=== PATIENT | male | born 1970 | race Caucasian/White ===

== ENCOUNTER 2018-07-26 09:05 | Outpatient (CLI) | payer BC | END 2018-07-26 09:06 | disposition home or self-care (01) | LOC: CTENTCT 09:05 | PROVIDERS: ATTEND Otolaryngology Plastic Surgery within the Head & Neck | DX: J01.81 Other acute recurrent sinusitis (principal) | CPT/HCPCS: 70486 ==

== ENCOUNTER 2019-07-10 08:36 | Emergency (ER) | payer BC ==
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
--- NOTE | 2019-07-10 09:30 | RAD ---
LEFT ANKLE 3 VIEWS: HISTORY: Injury, pain. COMPARISON: 06/12/2004. FINDINGS: Mild arthrosis changes of the ankle joint. The previously noted internal fixation screw transversing the distal tibia and fibula has been removed when compared to the prior study. Anterior and lateral soft tissue swelling. No acute fracture or dislocation. IMPRESSION: Swelling of the ankle and anterior aspect of the hindfoot region. Mild arthrosis of the ankle joint. No acute fracture or dislocation. POS: OFF
== END 2019-07-10 09:50 | disposition home or self-care (01) ==
LOC: ERS 08:36
DX: S93.602A Unspecified sprain of left foot, initial encounter (principal); V09.9XXA Pedestrian injured in unspecified transport accident, initial encounter

== ENCOUNTER 2022-08-22 12:36 | Emergency (ER) | payer BC, OTHER ==
[2022-08-22] MEDS ORDERED: Fluorescein Opthalmic Strip ONE (15:14)
[2022-08-22] MEDS ORDERED: Proparacaine 0.5% Opth 15 ML BOT ONE (15:15)
== END 2022-08-22 15:30 | disposition home or self-care (01) ==
LOC: ERS 12:36
DX: S05.02XA Injury of conjunctiva and corneal abrasion without foreign body, left eye, initial encounter (principal); W25.XXXA Contact with sharp glass, initial encounter
CPT/HCPCS: 99283